=== PATIENT | female | born 1975 | race African-American/Black ===

== ENCOUNTER 2017-02-27 12:38 | Emergency (ER) | payer SELFPAY ==
[2017-02-27] MEDS ORDERED: Ketorolac Tromethamine 30 MG/ML VIAL ONE (12:59)
[2017-02-27] MEDS ORDERED: Metoclopramide HCl 10 MG/2 ML VIAL ONE (13:00)
[2017-02-27] MEDS ORDERED: diphenhydrAMINE HCl 50 MG/ML 1 ML VIAL ONE (13:00)
== END 2017-02-27 14:56 | disposition home or self-care (01) ==
LOC: NAV ERS 12:38
DX: R51 Headache (principal); F41.9 Anxiety disorder, unspecified; F32.9 Major depressive disorder, single episode, unspecified; F17.200 Nicotine dependence, unspecified, uncomplicated; Z79.899 Other long term (current) drug therapy
CPT/HCPCS: 96361; 96374; 96375; J1200; J1885; J2765

== ENCOUNTER 2017-09-06 21:37 | Emergency (ER) | payer MEDICAID, OTHER, SELFPAY ==
[2017-09-06] MEDS ORDERED: Adacel (T-DAP) 0.5 ML VIAL ONE (21:54)
[2017-09-06] MEDS ORDERED: Lidocaine 1% 20 ML MDV ONE (22:37)
[2017-09-06] MEDS ORDERED: Triple Antibiotic Oint 1 GM Packet ONE (22:47)
== END 2017-09-06 23:15 | disposition home or self-care (01) ==
LOC: NAV ERS 21:37
DX: S61.211A Laceration without foreign body of left index finger without damage to nail, initial encounter (principal); G43.909 Migraine, unspecified, not intractable, without status migrainosus; F41.9 Anxiety disorder, unspecified; F32.9 Major depressive disorder, single episode, unspecified; F17.200 Nicotine dependence, unspecified, uncomplicated; W26.0XXA Contact with knife, initial encounter; Y99.0 Civilian activity done for income or pay; Y92.89 Other specified places as the place of occurrence of the external cause
CPT/HCPCS: 12002; 90471; 90715; J2001

== ENCOUNTER 2018-12-20 17:51 | Emergency (ER) | payer OTHER, SELFPAY ==
[2018-12-20] MEDS ORDERED: Ibuprofen 800 MG TAB ONE (18:09)
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
== END 2018-12-20 18:58 | disposition home or self-care (01) ==
LOC: NAV ERS 17:51
DX: S33.5XXA Sprain of ligaments of lumbar spine, initial encounter (principal); S13.4XXA Sprain of ligaments of cervical spine, initial encounter; G43.909 Migraine, unspecified, not intractable, without status migrainosus; F41.9 Anxiety disorder, unspecified; F32.9 Major depressive disorder, single episode, unspecified; Z77.22 Contact with and (suspected) exposure to environmental tobacco smoke (acute) (chronic); V89.2XXA Person injured in unspecified motor-vehicle accident, traffic, initial encounter
CPT/HCPCS: 70450; 72100; 72125

== ENCOUNTER 2019-01-15 12:37 | Emergency (ER) | payer OTHER, SELFPAY ==
[2019-01-15] MEDS ORDERED: traMADol HCl 50 MG TAB ONE (13:17)
--- NOTE | 2019-01-15 14:20 | RAD ---
RIGHT HAND 3 VIEWS: HISTORY: Pain. COMPARISON: None. FINDINGS: No acute fracture or malalignment. Soft tissues are unremarkable. Mild widening of the scapholunate interval. IMPRESSION: 1. No acute fracture or malalignment. 2. Mild widening of the scapholunate interval suggesting scapholunate ligamentous injury, age indete rminate. POS: CET
== END 2019-01-15 14:34 | disposition home or self-care (01) ==
LOC: NAV ERS 12:37
DX: M79.641 Pain in right hand (principal); G43.909 Migraine, unspecified, not intractable, without status migrainosus; F41.9 Anxiety disorder, unspecified; F32.9 Major depressive disorder, single episode, unspecified; F17.200 Nicotine dependence, unspecified, uncomplicated; Z79.899 Other long term (current) drug therapy

== ENCOUNTER 2022-03-07 09:16 | Emergency (ER) | payer BC | END 2022-03-07 10:30 | disposition home or self-care (01) | LOC: NAV ERS 09:16 | DX: S92.511A Displaced fracture of proximal phalanx of right lesser toe(s), initial encounter for closed fracture (principal); G43.909 Migraine, unspecified, not intractable, without status migrainosus; X58.XXXA Exposure to other specified factors, initial encounter ==

== ENCOUNTER 2022-09-19 01:17 | Emergency (ER) | payer BC ==
[2022-09-19 01:38] LABS: Bilirubin Negative (Negative); Blood, Urine Trace (Negative); Clarity Clear (Clear); Glucose, Urine (Dipstick) Negative (Negative); Ketone, Urine Negative (Negative); Leukocyte Negative (Negative); Nitrite Negative (Negative); Protein, Urine (Dipstick) Negative (Neg-Trace); Urobilinogen 0.2 mg/dL (Less than 2)
[2022-09-19 01:40] LABS: Bacteria/HPF None Seen HPF (None Seen); RBC/HPF None Seen HPF (0-3); Squamous Epithelial None Seen HPF (0-3); WBC/HPF None Seen HPF (0-3)
[2022-09-19] MEDS ORDERED: Ondansetron PF 4 MG/2 ML Vial ONE (01:48)
[2022-09-19] MEDS ORDERED: Tamsulosin HCl 0.4 MG CAP ONE (01:48)
[2022-09-19] MEDS ORDERED: Ketorolac Tromethamine 60 MG/2 ML VIAL ONE (01:48)
[2022-09-19 02:01] LABS: #Basophils 0.1 thou/uL (0.0-0.2); #Eosinphils 0.2 thou/uL (0.0-0.7); #Lymphocytes 3.2 thou/uL (1.20-3.40); #Monocytes 0.7 thou/uL (0.11-0.59); #Neutrophils 5.8 thou/uL (1.40-6.50); %Basophils 0.7 % (0.0-1.0); %Lymphocytes 32.3 % (21.0-51.0); %Monocytes 6.6 % (0.0-10.0); %Neutrophils 58.4 % (42.0-75.0); Hemoglobin 13.1 g/dL (12.0-16.0); Mean Corpuscular Hemoglobin 27.5 pg (27.0-31.0); Mean Corpuscular Volume 88.6 fl (78.0-98.0); Mean Platelet Volume 8.9 fL (7.4-10.4); Platelet Count 249 10x3/uL (130-400); RBC Distribution Width 13.2 % (11.5-14.5); Red Blood Cell (RBC) Count 4.76 mill/uL (4.20-5.40); White Blood Cell (WBC) Count 9.9 10x3/uL (4.8-10.8)
[2022-09-19 02:15] LABS: ALT (SGPT) 20 U/L (8-55); AST (SGOT) 19 U/L (5-34); Albumin 4.3 g/dL (3.5-5.0); Alkaline Phosphatase 74 U/L (40-110); Anion Gap 15 mmol/L (10-20); BUN (Urea Nitrogen) 7 mg/dL (7.0-18.7); Bilirubin, Total 0.2 mg/dL (0.2-1.2); Calc. Creatinine Clearance 0 mL/min (70-130); Calcium 9.1 mg/dL (7.8-10.44); Carbon Dioxide 23 mmol/L (22-29); Chloride 108 mmol/L (98-107); Estimated GFR 98; Globulin 2.9 g/dL (2.4-3.5); Glucose 95 mg/dL (70-105); Potassium 3.4 mmol/L (3.5-5.1); Protein, Total 7.2 g/dL (6.0-8.3); Sodium 143 mmol/L (136-145)
[2022-09-19] MEDS ORDERED: Sodium Chloride 0.9% 1,000 ML ONE (05:22)
== END 2022-09-19 05:00 | disposition home or self-care (01) ==
LOC: NAV ERS 01:17
DX: N13.2 Hydronephrosis with renal and ureteral calculous obstruction (principal); F17.200 Nicotine dependence, unspecified, uncomplicated
CPT/HCPCS: 74176; 80053; 81003; 81015; 85025; 96374; 96375; J1885; J2405; J7050

== ENCOUNTER 2023-12-15 10:28 | Emergency (ER) | payer BC, SELFPAY ==
[2023-12-15] MEDS ORDERED: Budesonide 0.5 MG/2 ML NEB ONE (10:43)
[2023-12-15] MEDS ORDERED: Albuterol 2.5 MG (0.5 mL) NEB ONE (10:43)
[2023-12-15] MEDS ORDERED: Ketorolac Tromethamine 60 MG/2 ML VIAL ONE (10:46)
[2023-12-15 11:41] LABS: Influenza A by NAA Not Detected (NotDetected); Influenza B by NAA Not Detected (NotDetected); SARS-CoV-2 NAA Rapid Test DETECTED (NotDetected)
[2023-12-15] MEDS ORDERED: Dexamethasone 4 mg/ml Vial ONE (11:52)
== END 2023-12-15 12:37 | disposition home or self-care (01) ==
LOC: NAV ERS 10:28
DX: U07.1 COVID-19 (principal); J20.9 Acute bronchitis, unspecified; F17.200 Nicotine dependence, unspecified, uncomplicated
CPT/HCPCS: 71046; 93005; 96372; J1100; J1885; J7611; J7626

== ENCOUNTER 2025-02-22 12:25 | Emergency (ER) | payer BC ==
[2025-02-22] MEDS ORDERED: Aspirin Chewable 81 MG TAB ONE (12:57)
[2025-02-22 13:20] LABS: #Basophils 0.1 thou/uL (0.0-0.2); #Eosinophils 0.2 thou/uL (0.0-0.7); #Lymphocytes 2.4 thou/uL (1.20-3.40); #Monocytes 0.6 thou/uL (0.11-0.59); #Neutrophils 4.3 thou/uL (1.40-6.50); %Basophils 1.4 % (0.0-1.0); %Eosinophils 2.5 % (0.0-10.0); %Lymphocytes 31.8 % (21.0-51.0); %Monocytes 8.1 % (0.0-10.0); %Neutrophils 56.4 % (42.0-75.0); Hematocrit 39.0 % (36.0-47.0); Hemoglobin 12.9 g/dL (12.0-16.0); Mean Corpuscular Hemoglobin 27.5 pg (27.0-31.0); Mean Corpuscular Volume 83.0 fl (78.0-98.0); Platelet Count 241 10x3/uL (130-400); Red Blood Cell (RBC) Count 4.70 mill/uL (4.20-5.40); White Blood Cell (WBC) Count 7.6 10x3/uL (4.8-10.8)
[2025-02-22 13:32] LABS: ALT (SGPT) 9 U/L (Less than 34); AST (SGOT) 16 U/L (11-34); Albumin 3.8 g/dL (3.1-4.5); Alkaline Phosphatase 60 U/L (40-110); Anion Gap 15 mmol/L (10-20); BUN (Urea Nitrogen) 13 mg/dL (7.0-18.7); Bilirubin, Total 0.4 mg/dL (0.3-1.2); Calc. Creatinine Clearance 0 mL/min (70-130); Calcium 9.0 mg/dL (7.8-10.44); Carbon Dioxide 24 mmol/L (22-29); Chloride 105 mmol/L (98-107); Globulin 3.0 g/dL (2.4-3.5); Glucose 117 mg/dL (70-105); Potassium 3.6 mmol/L (3.5-5.1); Sodium 140 mmol/L (136-145)
[2025-02-22 13:33] LABS: Troponin I Less than 0.010 ng/mL (< 0.028)
[2025-02-22 16:37] LABS: Troponin I Less than 0.010 ng/mL (< 0.028)
== END 2025-02-22 17:00 | disposition home or self-care (01) ==
LOC: NAV ERS 12:25
DX: R07.9 Chest pain, unspecified (principal); I10 Essential (primary) hypertension; F17.210 Nicotine dependence, cigarettes, uncomplicated
CPT/HCPCS: 71045; 80053; 83690; 84484; 85025; 93005; 94760